=== PATIENT | female | born 1945 | race Caucasian/White ===

== ENCOUNTER → 2018-07-02 | Outpatient (CLI) | payer MEDICARE ==
[2018-07-02 14:18] VITALS: BP 175/78
== END | disposition home or self-care (01) ==
LOC: WHH 09:45
PROVIDERS: ATTEND Podiatrist Foot & Ankle Surgery
DX: L89.511 Pressure ulcer of right ankle, stage 1 (principal); L97.518 Non-pressure chronic ulcer of other part of right foot with other specified severity; G81.91 Hemiplegia, unspecified affecting right dominant side; I63.9 Cerebral infarction, unspecified; Q66.0 Congenital talipes equinovarus
CPT/HCPCS: A6234; G0463